=== PATIENT | male | born 1965 | race Caucasian/White ===

== ENCOUNTER 2022-01-08 15:34 | Emergency (ER) | payer OTHER ==
[~2022-01-08] VITALS: Ht 175.3 cm; Wt 80.7 kg
--- NOTE | 2022-01-08 17:26 | NUR ---
S/P GLF this am - 1030, his right side chest wall hit the edge of the table- c/p severe right side chest wall pain- 05/06
--- NOTE | 2022-01-08 17:39 | NUR ---
X RAY AT BEDSIDE
[2022-01-08] MEDS ORDERED: MORPHINE SULFATE INJ 2 MG/ML DISP.SYRIN IV ONE (18:30)
[2022-01-08] MEDS ORDERED: ONDANSETRON HCL/PF - ER 4 MG/2 ML VIAL IV ONE (18:30)
[2022-01-08] MEDS ORDERED: IOHEXOL-300 100 ML VIAL IV ONE (18:35)
[2022-01-08] MEDS ORDERED: IV NS 0.9% 250 ML IV ONE (18:36)
[2022-01-08] MEDS ORDERED: MORPHINE SULFATE INJ 4 MG/ML DISP.SYRIN ONE (18:50)
[2022-01-08] MEDS ORDERED: ONDANSETRON HCL/PF 4 MG/2 ML VIAL ONE (18:50)
[2022-01-08 19:18] LABS: ALBUMIN 4.1 g/dL (3.4-5.0); BILIRUBIN,TOTAL 0.5 mg/dL (0.2-1.0); CALCIUM, SERUM 9.4 mg/dL (8.5-10.1); CREATININE 1.3 mg/dL (0.6-1.3); POTASSIUM 4.4 mmol/L (3.5-5.1); TOTAL PROTEIN, SERUM 7.6 g/dL (6.4-8.2)
[2022-01-08 20:00] LABS: BASOPHILS % (AUTO) 0.2 % (0.0-2.0); EOSINOPHILS % (AUTO) 0.1 % (0.0-6.0); HEMATOCRIT 47 % (39-51); HEMOGLOBIN 15.8 g/dL (13.5-17.5); LYMPHOCYTES # (AUTO) 0.8 K/uL (0.8-4.8); LYMPHOCYTES % (AUTO) 9.3 % (20.0-44.0); MEAN CORPUSCULAR HGB CONC 34 g/dl (31.0-36.0); MEAN CORPUSCULAR VOLUME 91 fL (80-96); MONOCYTES # (AUTO) 0.3 K/uL (0.1-1.30); MONOCYTES % (AUTO) 3.1 % (2.0-12.0); NEUTROPHILS # (AUTO) 7.9 K/uL (1.8-8.9); NEUTROPHILS % (AUTO) 87.3 % (43.0-81.0); PLATELET COUNT (AUTO) 253 K/uL (150-450); RED BLOOD CELL COUNT(AUTO) 5.12 MIL/uL (4.5-6.0)
[2022-01-08] MEDS ORDERED: HYDR-3972 PO (20:23)
--- NOTE | 2022-01-08 20:35 | NUR ---
IV removed. Catheter intact and site benign. Pressure and 4x4 applied to site. No bleeding noted.
--- NOTE | 2022-01-08 20:35 | NUR ---
Patient discharged to home in stable condition. Written and verbal after care instructions given. Patient verbalizes understanding of instruction.
[2022-01-08 21:14] VITALS: BP 145/82
== END 2022-01-08 21:15 | disposition home or self-care (01) ==
LOC: ER 15:44
DX: S20.211A Contusion of right front wall of thorax, initial encounter (principal); R10.11 Right upper quadrant pain; E27.8 Other specified disorders of adrenal gland; W01.0XXA Fall on same level from slipping, tripping and stumbling without subsequent striking against object, initial encounter; Y93.89 Activity, other specified; Y92.89 Other specified places as the place of occurrence of the external cause; Y99.8 Other external cause status
CPT/HCPCS: 36415; 71100; 74177; 80053; 83690; 85025; 96374; 96375; 99285; J2270; J2405; J7050; Q9967